=== PATIENT | male | born 1980 | race African-American/Black ===

== ENCOUNTER 2017-07-06 23:19 | Inpatient (IN) | payer BC, SELFPAY ==
--- NOTE | 2017-07-06 23:55 | RAD ---
RIGHT HAND THREE VIEWS: 07/06/17 HISTORY: Injury, right hand pain and swelling. FINDINGS/IMPRESSION: No acute fracture or dislocation is seen. There is a 15mm long radiopaque foreign body in the soft t issues of the ulnar aspect of the wrist with adjacent multiple tiny foreign bodies as well. POS: [facility]
[2017-07-07 00:12] LABS: #Basophils 0.1 thou/uL (0.0-0.2); #Eosinphils 0.2 thou/uL (0.0-0.7); #Lymphocytes 2.6 thou/uL (1.20-3.40); #Monocytes 1.4 thou/uL (0.11-0.59); #Neutrophils 7.1 thou/uL (1.40-6.50); %Basophils 0.9 % (0.0-1.0); %Eosinophils 1.4 % (0.0-10.0); %Lymphocytes 22.9 % (21.0-51.0); %Monocytes 12.6 % (0.0-10.0); Hematocrit 43.8 % (42.0-52.0); Mean Platelet Volume 7.7 fL (7.4-10.4); White Blood Cell (WBC) Count 11.3 thou/uL (4.8-10.8)
[2017-07-07 00:30] LABS: ALT (SGPT) 17 U/L (8-55); AST (SGOT) 24 U/L (5-34); Alkaline Phosphatase 63 U/L (40-150); Anion Gap 11 mmol/L (10-20); BUN (Urea Nitrogen) 9 mg/dL (8.9-20.6); Bilirubin, Total 0.3 mg/dL (0.2-1.2); Calc. Creatinine Clearance 0 mL/min (70-130); Carbon Dioxide 26 mmol/L (22-29); Chloride 105 mmol/L (98-107); Estimated GFR-MDRD Greater than 90; Globulin 3.1 g/dL (2.4-3.5); Protein, Total 6.6 g/dL (6.0-8.3)
[2017-07-07] MEDS ORDERED: Adacel (T-DAP) 0.5 ML VIAL ONE (01:52)
[2017-07-07] MEDS ORDERED: Zolpidem Tartrate 5 MG TAB PO PRN (02:52)
[2017-07-07] MEDS ORDERED: Ketorolac Tromethamine 30 MG/ML VIAL IVP PRN (02:52)
[2017-07-07] MEDS ORDERED: Senokot 8.6 MG TAB PO PRN (02:52)
[2017-07-07] MEDS ORDERED: Milk Of Magnesia 30 ML UDCUP PO PRN (02:52)
[2017-07-07] MEDS ORDERED: Ondansetron HCl/PF 4 MG/2 ML Vial IVP PRN ×2 (02:52→17:47)
[2017-07-07] MEDS ORDERED: Loperamide HCl 2 MG CAP PO PRN (02:52)
[2017-07-07] MEDS ORDERED: Ondansetron ODT 4 MG TAB PO PRN (02:52)
[2017-07-07] MEDS ORDERED: HYDROcodone/Acetaminophen 10/325 mg Tablet PO PRN (02:52)
[2017-07-07] MEDS ORDERED: Mag-Al 1200 mg/1200 mg/30 ML UDCUP PO PRN (02:52)
[2017-07-07] MEDS ORDERED: Acetaminophen 325 MG TAB PO PRN (02:52)
[2017-07-07] MEDS ORDERED: Ketorolac Tromethamine 30 MG/ML VIAL ONE ×3 (03:03→17:57)
[2017-07-07] MEDS ORDERED: Piperacillin/Tazobactam 3.375 GM VIAL ONE (03:04)
--- NOTE | 2017-07-07 03:42 | HP ---
PRIMARY CARE PHYSICIAN: [facility] call admission. REASON FOR ADMISSION: Right-hand swelling and cellulitis with the eze nail. HISTORY OF PRESENT ILLNESS: A 36-year-old Black -[place] male with no significant medical h istory, who came to the emergency room today with a complaint of right-hand swelling. The patient r eports that yesterday he was working and he hit the right hand on the eze nail. Subsequently, he has a rapid increase in swelling on his right hand and it was giving throbbing pain. He was not hav ing any fever at home. His pain is about 10/10 in intensity. His swelling was rapidly getting wors e and that is why he decided to come to the emergency room. In the emergency room, patient had a hand x-ray, which showed 15-mm long radiopaque foreign body in the soft tissue of the ulnar aspect of the wrist with adjacent multiple tiny foreign bodies as well. Patient also had a significant amount of pain and he was hypertensive. He was uncomfortable and t hat is why the patient is being admitted to medical floor. In the emergency room, patient has recei lou to tetanus toxoid injection. The patient has received IV fluid, vancomycin, and Zosyn. Patient also received Toradol for pain. REVIEW OF SYSTEMS: The following complete review of systems was negative, unless otherwise mentione d in the HPI or below: Constitutional: Weight loss or gain, ability to conduct usual activities. Skin: Rash, itching. Eyes: Double vision, pain. ENT/Mouth: Nose bleeding, neck stiffness, pain, tenderness. Cardiovascular: Palpitations, dyspnea on exertion, orthopnea. Respiratory: Shortnes s of breath, wheezing, cough, hemoptysis, fever or night sweats. Gastrointestinal: Poor appetite, abdominal pain, heartburn, nausea, vomiting, constipation, or diarrhea. Genitourinary: Urgency, fr equency, dysuria, nocturia. Musculoskeletal: Pain, swelling. Neurologic/Psychiatric: Anxiety, de pression. Allergy/Immunologic: Skin rash, bleeding tendency. Please see my HPI for pertinent posi tives and negatives. All other review of systems reviewed and negative except as mentioned in the H PI. EMERGENCY ROOM COURSE: The patient has received IV fluid, vancomycin, Zosyn, Toradol 30 mg, and tet anus toxoid. PAST MEDICAL HISTORY: Reviewed and negative. PAST SURGICAL HISTORY: Reviewed and negative. PAST PSYCHIATRIC HISTORY: Reviewed and negative. SOCIAL HISTORY: Patient drinks socially once a month. He abuses marijuana very occasionally. He s mokes about 1/2 pack per day. He lives at home. He is smoking since the age of 9. FAMILY HISTORY: No strong family history of premature coronary artery disease, stroke, or cancer. ALLERGIES: No known drug allergies. CURRENT HOME MEDICATIONS: The patient is not taking any prescribed or non-prescribed medication. PHYSICAL EXAMINATION: VITAL SIGNS: On arrival, blood pressure 146/86, pulse 58, respiratory rate 18, temperature 98.9, sa turation 100% on room air, weight 90.7 kilograms. GENERAL: Patient is currently alert, awake, mild distress due to pain in his right hand. HEENT: Normocephalic, atraumatic. Eyes: Pupils round, reactive to light. Extraocular muscle inta ct. ENT: Oropharynx within normal limits. Moist mucous membranes. No oral lesions. No pharyngeal emily thema, no exudate. NECK: Supple. Range of motion is normal. No meningeal signs of irritation. LUNGS: Clear to auscultation without any rhonchi or rales. CARDIAC: S1, S2 regular without any murmur. ABDOMEN: Soft, bowel sounds present, nontender, nondistended. No organomegaly, no mass, no suprapu bic tenderness. BACK: Unremarkable, no CVA tenderness. EXTREMITIES: Upper extremity passive movement of all joints are normal. Lower extremity: No edema . Good peripheral pulsation. Right-hand examination: Patient does have significant swelling, tend erness, warmth, and erythema over right hand with entry site of eze nail or on the medial aspect o f the wrist. NEUROLOGIC: Nonfocal examination. The patient moves all 4 limbs. Plantar bilateral flexor. PSYCHIATRIC: Normal affect. SIGNIFICANT LABS: 1. CBC: WBC 11.3, hemoglobin 14.2, platelet 213. BMP: Sodium 138, potassium 3.8, chloride 105, c arbon dioxide 26, BUN 9, creatinine 1.07, glucose 138, calcium 9.0. 2. LFT: AST 24, ALT 17, alkaline phosphatase 63, albumin 3.5. CRP 1.23. X-ray hand showing 15-mm long radiopaque foreign body in the soft tissue of the ulnar aspect of the wrist with adjacent multiple tiny foreign bodies as well. ASSESSMENT AND PLAN/IMPRESSION: 1. Right-hand cellulitis swelling injury with a eze nail. This patient has rapidly increasing sw elling in his right hand and he has significantly uncontrolled pain. Patient will require admission . We will consult hand surgeon tomorrow morning. Patient has received Adacel vaccination in the em ergency room. We will continue with vancomycin and Zosyn as empiric coverage. We will control his pain with Toradol and morphine, and for breakthrough pain, we will give him [place]. 2. Elevated hypertension without previous history of hypertension. His blood pressure is high, mos t likely related with his uncontrolled pain. We will, at this point, not start any antihypertensive medication and we will watch him in the hospital. 3. Tobacco abuse disorder. Smoking cessation counseling given. Healthy lifestyle measures discuss ed with the patient. 4. Deep venous thrombosis prophylaxis not needed because the patient is ambulatory and very low-ris k for deep venous thrombosis, gastrointestinal prophylaxis, Pepcid 20 mg p.o. b.i.d. 5. Code status: The patient is FULL CODE. Patient does not have any surrogate decision maker. Disposition plan based on clinical course. This patient may need to require a surgical procedure an d we are expecting patient's stay in the hospital more than 2 midnights. Plan of care discussed wit h the patient in detail.
[2017-07-07 04:22] LABS: #Eosinphils 0.1 thou/uL (0.0-0.7); #Monocytes 1.3 thou/uL (0.11-0.59); #Neutrophils 7.5 thou/uL (1.40-6.50); %Basophils 0.3 % (0.0-1.0); %Eosinophils 1.3 % (0.0-10.0); %Lymphocytes 17.8 % (21.0-51.0); %Monocytes 12.2 % (0.0-10.0); Hematocrit 39.7 % (42.0-52.0); Mean Platelet Volume 7.6 fL (7.4-10.4); Red Blood Cell (RBC) Count 4.24 mill/uL (4.70-6.10)
[2017-07-07 04:26] VITALS: BMI 25.1
[2017-07-07 04:44] LABS: Anion Gap 8 mmol/L (10-20); BUN (Urea Nitrogen) 8 mg/dL (8.9-20.6); Calc. Creatinine Clearance 154 mL/min (70-130); Calcium 8.3 mg/dL (7.8-10.44); Carbon Dioxide 25 mmol/L (22-29); Chloride 108 mmol/L (98-107); Estimated GFR-MDRD Greater than 90
[2017-07-07] MEDS ORDERED: FLU VACC QS2017-18 36 mo. & older 0.5 ML SYRINGE IM ONE (09:00)
--- NOTE | 2017-07-07 09:28 | PDOC.EVN ---
Event Note - Event Note Event Note: pt seen and examined. Admitted earlier today for injury to hand with retained FB in the form of eze nail. chart,labs etc reviewed. feels better. pain 7/10 in intensity. swelling about the same left hand. VSS. CTA B/L.RRR hand swelling w nail point palpable left lateral edge. Difficult to move fingers. labs /meds reviewed. Plan-cont IV ABX. Hand surgeon has evaluated pt this am with plans for OR later today. cont current care. Will need at least 4-5 days of IV Abx. Follow Cx results from surgical sample. hemodynamically stable
[2017-07-07] MEDS ORDERED: Potassium Chloride 20 MEQ TAB PO SCH (09:30)
[2017-07-07] MEDS: Piperacillin/Tazobactam 4.5 GM in Sodium Chloride 0.9% 100 ML IVPB SCH ×3 (09:42→20:17)
[2017-07-07] MEDS ORDERED: Vancomycin HCl 1 GM in Premix Bag 1 BAG IVPB SCH (10:15)
[2017-07-07] MEDS: Famotidine 20 MG TAB PO SCH ×2 (12:40→20:17)
[2017-07-07] MEDS: Saccharomyces boulardii 250 MG CAP PO SCH (12:41)
[2017-07-07] MEDS: Vancomycin HCl 1 GM in Premix Bag 1 BAG IVPB SCH ×2 (12:41→20:50)
[2017-07-07] MEDS ORDERED: Bupivacaine PF 0.5% 30 ML VIAL ONE (15:55)
[2017-07-07] MEDS ORDERED: Bacitracin Zinc Ointment 30 gm TUBE ONE (15:55)
[2017-07-07] MEDS ORDERED: Thrombin 5000 UNITS/5 ML VIAL ONE (15:55)
[2017-07-07] MEDS ORDERED: Sodium Chloride 0.9% 10 ML ONE ×2 (15:55→17:02)
[2017-07-07] MEDS ORDERED: Lidocaine 1% (PF) 30 ML VIAL ONE (15:55)
[2017-07-07] MEDS ORDERED: Propofol 200 MG/20 ML VIAL ONE (16:20)
[2017-07-07] MEDS ORDERED: PHENYLEPHRINE-NS 100 MCG/ML 10 ML SYRINGE ONE (16:20)
[2017-07-07] MEDS ORDERED: Ondansetron HCl/PF 4 MG/2 ML Vial ONE (16:20)
[2017-07-07] MEDS ORDERED: Lidocaine 2% PF 10 ML AMP (For Epidural Use) ONE (16:20)
[2017-07-07] MEDS ORDERED: Dexamethasone 20 MG/5 ML VIAL ONE (16:20)
[2017-07-07] MEDS ORDERED: HYDROmorphone 2 MG/ML VIAL SLOW IVP PRN (17:47)
[2017-07-07] MEDS ORDERED: Promethazine HCl 25 MG/ML VIAL IM PRN ×2 (17:47→18:18)
[2017-07-07] MEDS ORDERED: Promethazine HCl 25 MG/ML VIAL SLOW IVP PRN (17:47)
[2017-07-07] MEDS ORDERED: Meperidine HCl/PF 25 MG/ML VIAL IM PRN (18:18)
[2017-07-07] MEDS ORDERED: HYDROcodone/Acetaminophen 7.5/325 mg Tablet PO PRN (18:19)
[2017-07-07] MEDS ORDERED: Ondansetron HCl/PF 4 MG/2 ML Vial SLOW IVP PRN (18:20)
[2017-07-07] MEDS: Albuterol Sulfate 2.5 mg/3 ml Neb NEB SCH ×2 (18:40→23:50)
[2017-07-07] MEDS: HYDROcodone/Acetaminophen 7.5/325 mg Tablet PO PRN (20:16)
[2017-07-07] MEDS: Ketorolac Tromethamine 30 MG/ML VIAL IVP SCH (23:39)
[2017-07-08] MEDS: Vancomycin HCl 1 GM in Premix Bag 1 BAG IVPB SCH ×3 (01:05→18:30)
[2017-07-08] MEDS: Piperacillin/Tazobactam 4.5 GM in Sodium Chloride 0.9% 100 ML IVPB SCH ×4 (03:39→21:01)
[2017-07-08] MEDS: Ketorolac Tromethamine 30 MG/ML VIAL IVP SCH ×3 (05:19→18:04)
[2017-07-08 05:49] LABS: #Lymphocytes 0.9 thou/uL (1.20-3.40); #Monocytes 0.3 thou/uL (0.11-0.59); #Neutrophils 10.5 thou/uL (1.40-6.50); %Eosinophils 0.1 % (0.0-10.0); %Lymphocytes 7.4 % (21.0-51.0); %Monocytes 2.4 % (0.0-10.0); Hematocrit 42.2 % (42.0-52.0); Mean Platelet Volume 7.6 fL (7.4-10.4); White Blood Cell (WBC) Count 11.6 thou/uL (4.8-10.8)
[2017-07-08 06:03] LABS: Anion Gap 11 mmol/L (10-20); BUN (Urea Nitrogen) 8 mg/dL (8.9-20.6); Calc. Creatinine Clearance 123 mL/min (70-130); Carbon Dioxide 24 mmol/L (22-29); Chloride 105 mmol/L (98-107); Estimated GFR-MDRD Greater than 90
--- NOTE | 2017-07-08 06:21 | OP ---
DATE OF SURGERY: 07/07/2017 PREOPERATIVE DIAGNOSES: 1. Right wrist foreign body, wood-like, entering the triquetrohamate articulation. 2. Gross contamination along the path from the skin to the joint. POSTOPERATIVE DIAGNOSES AND FINDINGS: 1. Wood foreign body, 2.5 cm long, with tract of contamination from the skin to triquetrohamate kelsi nt. 2. A 50% laceration, longitudinal, transverse of the extensor carpi ulnaris tendon and complete she ath laceration. 3. Contamination along the entire tract including the intra-articular joint and synovium. PROCEDURES PERFORMED: 1. Right wrist arthrotomy with foreign body removal and synovectomy, triquetrohamate articulation. 2. Removal of foreign body, wood-like, black tar appearing cylindrical body, 2.5 cm long x 3 mm in thickness. 3. Debridement of extensor carpi ulnaris tendon sheath/tenosynovectomy. 4. Debridement of the entire tract from subcutaneous down to and including the bone, [place] [address] debridement and [place] [address], debridement of open joint and /or fracture. COMPLICATIONS: None. TOURNIQUET TIME: 25 minutes. ESTIMATED BLOOD LOSS: 50 mL. 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 Thus, operative intervention on an u rgent basis was indicated. DESCRIPTION OF PROCEDURE: After successful general endotracheal anesthesia, the limb was prepped an d draped. A time out was done appropriately. The C-arm was brought to the field, identified the en tire path, outlined incision over this and we then made a zigzag incision along the path of the fore ign body. Immediately, there was gross mucopurulence camefrom subcutaneous and deep. We then exten ded the incision to make it a total of 4 cm incision so that we could then now remove the foreign adelaide dy which we did by following which tract where it came from the triquetrohamate joint. We began steven riding first superficially following the tract removing multiple foreign body particles, but visuali zed meticulously the superficial ulnar nerve branches. It was then, after debriding the subcutaneou s tissue of all foreign material and the fascia, then once we were deep to fascia, we could see the extensor carpi ulnaris sheath was contaminated and underneath this was a 50% with laceration of exte nsor carpi ulnaris caused by the foreign body upon entrance. We then debrided the sheath, performed tenosynovectomy, debrided the tendon and now went deep to the tendon where we saw that the tract of the foreign body contamination extended into the joint. We did a synovectomy with a Pala blade, used a small hemostat as a hand and wrist type rongeur and debrided the tissue of all visible foreig n body material and then included not only the debridement with the hemostat, but we used a Pala b lade, tenotomy scissors, and curette once we entered the joint. We also used excisional technique. At this time, however, the depth was included the joint surface as we debrided material associated with open joint. After performing the above excisional technique debridement with the above-listed instruments and th e above-listed depth and technique, we irrigated the joint with 3 liters of normal saline and Pulsav ac pressure. The wound was also included. We then took a syringe with an 18-gauge needle and pulle d 50 mL of irrigation of the joint itself without the deeper tissues being included. We deflated th e tourniquet after we saw no particles visible that were contamination particles using magnification loupes. Hemostasis was obtained. Radiographs were done that showed the foreign body removed and particles not being seen on the C-arm . We placed a pack of normal saline-soaked gauze into the wound down to the level of the joint, covere d this with a bulky dressing and then a splint because of the joint and tendon injury with plans to return for a second debridement and closure in 7 to 10 days. We will consult Infectious Disease bec ause of the fact that it was an intraarticular infection, true abscess, and foreign body. The patie nt left the operating room without complication.
[2017-07-08] MEDS: Albuterol Sulfate 2.5 mg/3 ml Neb NEB SCH ×2 (08:31→14:13)
[2017-07-08] MEDS: Famotidine 20 MG TAB PO SCH ×2 (08:45→21:00)
[2017-07-08] MEDS: Saccharomyces boulardii 250 MG CAP PO SCH (08:45)
--- NOTE | 2017-07-08 11:42 | PDOC.PN ---
- Subjective Encounter Start Date: 07/08/17 Encounter Start Time: 11:40 Pt seen and examined, chart reviewed in its entrety. This is my first visit with this patient To OR last evening for I&D, foreign bosy removed, cultures sent. All cultres neg so far, but still very early. tolerating vanc and zosyn without rash or itching. deneis f/C, no n/V/D/C, no CP or SOB, hand feels swollen and tight. 10 point ROS performed and neg for all systems except as above - Objective Resuscitation Status: FULL MAR Reviewed: Yes Vital Signs & Weight: Vital Signs (12 hours) Temp Pulse Resp BP Pulse Ox 07/08/17 08:31 74 12 07/08/17 08:00 98.4 F 74 18 165/87 H 99 07/08/17 03:55 97.7 F 54 L 18 147/83 H 96 07/07/17 23:52 98.7 F 65 18 176/98 H 98 07/07/17 23:50 71 16 97 Weight Weight 195 lb 11.2 oz I&O: 07/07/17 07/08/17 07/09/17 06:59 06:59 06:59 Intake Total 1380 Balance 1380 Result Diagrams: 07/08/17 05:19 07/08/17 05:19 Radiology Reviewed by me: Yes EKG Reviewed by me: Yes Phys Exam - Physical Examination Constitutional: NAD HEENT: PERRLA, moist MMs, sclera anicteric, oral pharynx no lesions Neck: no nodes, no JVD, supple, full ROM Respiratory: no wheezing, no rales, no rhonchi, clear to auscultation bilateral Cardiovascular: RRR, no significant murmur, no rub Gastrointestinal: soft, non-tender, no distention, positive bowel sounds Musculoskeletal: pulses present, edema present right hand, none to left hand or BLE Neurological: non-focal, normal sensation, moves all 4 limbs Lymphatic: no nodes Psychiatric: normal affect, A&O x 3 Skin: no rash, normal turgor, cap refill <2 seconds Deviation from normal: right hand in OR dressing, not removed Dx/Plan (1) Traumatic arthropathy, right hand Code(s): M12.541 - TRAUMATIC ARTHROPATHY, RIGHT HAND Status: Acute Comment: S/P I&D. On Vanc adn zosyn, cultures neg at 12 hours. CCM (2) Cellulitis of hand, right Code(s): L03.113 - CELLULITIS OF RIGHT UPPER LIMB Status: Acute Comment: see above (3) Foreign body (FB) in soft tissue Code(s): M79.5 - RESIDUAL FOREIGN BODY IN SOFT TISSUE Status: Resolved Comment: removed, path pending (4) HTN (hypertension) Code(s): I10 - ESSENTIAL (PRIMARY) HYPERTENSION Status: Acute Qualifiers: Hypertension type: essential hypertension Qualified Code(s): I10 - Essential (primary) hypertension (5) Tobacco abuse Code(s): Z72.0 - TOBACCO USE Status: Chronic - Plan cont current plan of care, continue antibiotics, PT/OT * .
[2017-07-08 16:18] LABS: Vancomycin, Trough 12.3 ug/mL
[2017-07-08] MEDS: Vancomycin HCl 1.25 GM in Sodium Chloride 0.9% 250 ML 250 ML IVPB SCH (18:02)
[2017-07-09] MEDS: Ketorolac Tromethamine 30 MG/ML VIAL IVP SCH ×4 (00:08→17:57)
[2017-07-09] MEDS: Vancomycin HCl 1.25 GM in Sodium Chloride 0.9% 250 ML 250 ML IVPB SCH ×3 (01:58→17:57)
[2017-07-09] MEDS: Piperacillin/Tazobactam 4.5 GM in Sodium Chloride 0.9% 100 ML IVPB SCH ×4 (03:45→22:29)
[2017-07-09 05:46] LABS: #Eosinphils 0.1 thou/uL (0.0-0.7); #Lymphocytes 2.3 thou/uL (1.20-3.40); #Monocytes 1.3 thou/uL (0.11-0.59); #Neutrophils 8.5 thou/uL (1.40-6.50); %Basophils 0.2 % (0.0-1.0); %Eosinophils 0.8 % (0.0-10.0); %Lymphocytes 19.1 % (21.0-51.0); %Monocytes 10.3 % (0.0-10.0); Hematocrit 36.3 % (42.0-52.0); Mean Platelet Volume 7.8 fL (7.4-10.4); Red Blood Cell (RBC) Count 3.87 mill/uL (4.70-6.10); White Blood Cell (WBC) Count 12.2 thou/uL (4.8-10.8)
[2017-07-09 06:14] LABS: Anion Gap 8 mmol/L (10-20); BUN (Urea Nitrogen) 14 mg/dL (8.9-20.6); Calc. Creatinine Clearance 129 mL/min (70-130); Calcium 8.2 mg/dL (7.8-10.44); Carbon Dioxide 27 mmol/L (22-29); Chloride 109 mmol/L (98-107); Estimated GFR-MDRD Greater than 90
[2017-07-09] MEDS: Saccharomyces boulardii 250 MG CAP PO SCH (08:54)
[2017-07-09] MEDS: Famotidine 20 MG TAB PO SCH ×2 (08:54→23:09)
--- NOTE | 2017-07-09 10:25 | PDOC.PN ---
- Subjective Encounter Start Date: 07/09/17 Encounter Start Time: 07:45 PT seen and examined on rounds. No acute events overnight. Swelling and tightness improved. Moving fingers better. No F/C, no N/V/D/c, po intake good. toelrating IV Vanc and Zosyn without itching or rash. Review of surgical note mentions wrist joint involvement, need to verify with Hand surgery. Cultures pending, but thio broth cloudy in micro and subbed out. No other complaints or needs 10 point ROS performed and neg for all except as above - Objective Resuscitation Status: Full MAR Reviewed: Yes Vital Signs & Weight: Vital Signs (12 hours) Temp Pulse Resp BP Pulse Ox 07/09/17 08:20 98.4 F 76 20 100 07/09/17 08:00 98.4 F 76 20 156/88 H 100 07/09/17 03:33 98.5 F 65 16 142/84 H 98 07/09/17 00:12 98.8 F 77 18 128/71 92 L Weight Weight 195 lb 11.2 oz I&O: 07/08/17 07/09/17 07/10/17 06:59 06:59 06:59 Intake Total 1380 3145 Balance 1380 3145 Result Diagrams: 07/09/17 04:44 07/09/17 04:44 Radiology Reviewed by me: Yes EKG Reviewed by me: No Phys Exam - Physical Examination Constitutional: NAD HEENT: PERRLA, moist MMs, sclera anicteric, oral pharynx no lesions Neck: no nodes, no JVD, supple, full ROM Respiratory: no wheezing, no rales, no rhonchi, clear to auscultation bilateral Cardiovascular: RRR, no significant murmur, no rub Gastrointestinal: soft, non-tender, no distention, positive bowel sounds Musculoskeletal: no edema, pulses present Neurological: non-focal, normal sensation, moves all 4 limbs Lymphatic: no nodes Psychiatric: normal affect, A&O x 3 Skin: no rash, normal turgor, cap refill <2 seconds Deviation from normal: Hand dressign (right hand) intact and not removed. Cap refill good Dx/Plan (1) Traumatic arthropathy, right hand Code(s): M12.541 - TRAUMATIC ARTHROPATHY, RIGHT HAND Status: Acute Comment: S/P I&D. On Vanc and zosyn, cultures may be positive. CCM. If joint involved , will need intermediate project manager IV antibiotics for septivc arthritis. Pt unfunded, will discuss with case management (2) Cellulitis of hand, right Code(s): L03.113 - CELLULITIS OF RIGHT UPPER LIMB Status: Acute Comment: see above (3) Foreign body (FB) in soft tissue Code(s): M79.5 - RESIDUAL FOREIGN BODY IN SOFT TISSUE Status: Resolved Comment: removed, path pending (4) HTN (hypertension) Code(s): I10 - ESSENTIAL (PRIMARY) HYPERTENSION Status: Acute Qualifiers: Hypertension type: essential hypertension Qualified Code(s): I10 - Essential (primary) hypertension Comment: better, not on treatment. watch (5) Tobacco abuse Code(s): Z72.0 - TOBACCO USE Status: Chronic - Plan cont current plan of care, continue antibiotics, PT/OT, nursing home social worker * .
[2017-07-09 17:06] LABS: #Basophils 0.1 thou/uL (0.0-0.2); #Eosinphils 0.3 thou/uL (0.0-0.7); #Lymphocytes 3.1 thou/uL (1.20-3.40); #Monocytes 1.1 thou/uL (0.11-0.59); %Basophils 0.6 % (0.0-1.0); %Eosinophils 2.2 % (0.0-10.0); %Lymphocytes 27.1 % (21.0-51.0); %Monocytes 9.7 % (0.0-10.0); Hematocrit 39.3 % (42.0-52.0); Mean Platelet Volume 7.2 fL (7.4-10.4); White Blood Cell (WBC) Count 11.6 thou/uL (4.8-10.8)
[2017-07-09 17:29] LABS: Vancomycin, Trough 16.2 ug/mL
[2017-07-09] MEDS ORDERED: Bupivacaine PF 0.5% 30 ML VIAL ONE (19:16)
[2017-07-09] MEDS ORDERED: Bacitracin Zinc Ointment 30 gm TUBE ONE (19:16)
[2017-07-09] MEDS ORDERED: Thrombin 5000 UNITS/5 ML VIAL ONE (19:16)
[2017-07-09] MEDS ORDERED: Sodium Chloride 0.9% 30 ML ONE (19:17)
[2017-07-09] MEDS ORDERED: Midazolam HCl 2 mg/2 ml Vial ONE (20:03)
[2017-07-09] MEDS ORDERED: Fentanyl 100 MCG/2 ML VIAL ONE ×2 (20:03→21:48)
[2017-07-09] MEDS ORDERED: Lidocaine 1% PF 5 ML VIAL ONE (20:43)
[2017-07-09] MEDS ORDERED: Ondansetron HCl/PF 4 MG/2 ML Vial ONE (20:43)
[2017-07-09] MEDS ORDERED: Propofol 200 MG/20 ML VIAL ONE (20:43)
[2017-07-09] MEDS ORDERED: Ondansetron HCl/PF 4 MG/2 ML Vial IVP PRN (21:32)
[2017-07-09] MEDS ORDERED: Promethazine HCl 25 MG/ML VIAL IM PRN (21:32)
[2017-07-09] MEDS ORDERED: Promethazine HCl 25 MG/ML VIAL SLOW IVP PRN (21:32)
[2017-07-09] MEDS ORDERED: Ketorolac Tromethamine 30 MG/ML VIAL ONE (21:37)
[2017-07-09] MEDS ORDERED: Labetalol HCl 100 MG/20 ML VIAL ONE (22:07)
[2017-07-10] MEDS: Vancomycin HCl 1.25 GM in Sodium Chloride 0.9% 250 ML 250 ML IVPB SCH ×3 (02:32→17:40)
[2017-07-10] MEDS: Piperacillin/Tazobactam 4.5 GM in Sodium Chloride 0.9% 100 ML IVPB SCH ×3 (03:57→14:03)
[2017-07-10 05:23] LABS: #Eosinphils 0.2 thou/uL (0.0-0.7); #Lymphocytes 2.8 thou/uL (1.20-3.40); #Monocytes 0.7 thou/uL (0.11-0.59); %Basophils 0.5 % (0.0-1.0); %Lymphocytes 36.3 % (21.0-51.0); %Monocytes 9.2 % (0.0-10.0); Hematocrit 36.1 % (42.0-52.0); Mean Platelet Volume 7.1 fL (7.4-10.4); Red Blood Cell (RBC) Count 3.81 mill/uL (4.70-6.10); White Blood Cell (WBC) Count 7.8 thou/uL (4.8-10.8)
[2017-07-10] MEDS: Ketorolac Tromethamine 30 MG/ML VIAL IVP SCH ×2 (06:01→14:02)
--- NOTE | 2017-07-10 06:50 | OP ---
DATE OF SURGERY: 07/09/2017 PREOPERATIVE DIAGNOSIS: Open wound with possible contamination because of persistent leukocytosis/e levated white blood cell count. POSTOPERATIVE DIAGNOSES/FINDINGS: Six small specks of contamination similar to the multiple specks found with debridement 2 days ago. No evidence of underlying gross purulence or joint involvement a t this time. Exposed the ulnar wall of the jorge without evidence of gross osteomyelitis. PROCEDURES PERFORMED: 1. Debridement of the material associated with open fracture. 2. Debridement of the wound down to including subcutaneous fascia and tendon sheath. 3. Packing the wound after irrigation with normal saline soaked gauze. SURGEON: Bear Lopez M.D. SHRUB GROWER: Dr. Kain Ochoa. COMPLICATIONS: None. TOURNIQUET TIME: 40 minutes. INDICATIONS: The patient again had a debridement 48 hours ago but despite being afebrile, wound dres sing change, gross purulence, had evidence of leukocytosis; thus a second look with irrigation and d ebridement were indicated. DESCRIPTION OF PROCEDURE: After successful general endotracheal anesthesia, the limb was prepped an d draped and then exsanguinated the limb with the help of anesthesia and elementary assistant teacher, Kain horton. The patient had a fuse flex of the javier-black material that was seen on the wound removed 2 days ago , the joint to include the duct region and hamate were visualized and no gross purulence was s een and no particle suspects of contamination seen in these areas. We then used the curette to debr va the lateral wall again of the hamate where the charcoal-like medium was found 48 hours ago, lift ed up all hidden recesses and irrigated with Pulsavac pressure with a total of 3 liters. We then re leased the tourniquet, obtained hemostasis and placed wound on the bulky dressing. The patient left the operating room without complications.
[2017-07-10] MEDS: Famotidine 20 MG TAB PO SCH (08:59)
[2017-07-10] MEDS: Saccharomyces boulardii 250 MG CAP PO SCH (08:59)
[2017-07-10] MEDS: HYDROcodone/Acetaminophen 7.5/325 mg Tablet PO PRN (09:09)
--- NOTE | 2017-07-10 10:20 | PDOC.PN ---
- Subjective Encounter Start Date: 07/10/17 Encounter Start Time: 07:30 Pt seen and examined on rounds earlier. On review of the chart, pt went back to OR yesterday for repeat washout. Operative note reviewed. Cultrues today with GNR in deep cuiltures, CoNS in one likely a contaminant. Toleratinve abx well without itching or rash, currently on Vanc adn Zosyn. no F/C, no N/V/D/C, no CP or SOB, pain well controlled. 10 point ROS performed adn neg for all systems except as above - Objective Resuscitation Status: Full MAR Reviewed: Yes Vital Signs & Weight: Vital Signs (12 hours) Temp Pulse Resp BP Pulse Ox 07/10/17 07:00 98.0 F 51 L 12 157/86 H 100 07/10/17 04:03 98 07/10/17 03:46 97.9 F 66 18 152/79 H 100 07/10/17 00:00 98.0 F 61 18 141/81 H 96 07/09/17 22:30 98.2 F 63 16 96 Weight Weight 195 lb 11.2 oz I&O: 07/09/17 07/10/17 07/11/17 06:59 06:59 06:59 Intake Total 3145 1810 Balance 3145 1810 Result Diagrams: 07/10/17 05:13 07/09/17 04:44 Radiology Reviewed by me: Yes EKG Reviewed by me: Yes Phys Exam - Physical Examination Constitutional: NAD HEENT: PERRLA, moist MMs, sclera anicteric, oral pharynx no lesions Neck: no nodes, no JVD, supple, full ROM Respiratory: no wheezing, no rales, no rhonchi, clear to auscultation bilateral Cardiovascular: RRR, no significant murmur, no rub Gastrointestinal: soft, non-tender, no distention, positive bowel sounds Musculoskeletal: no edema, pulses present Neurological: non-focal, normal sensation, moves all 4 limbs Lymphatic: no nodes Psychiatric: normal affect, A&O x 3 Skin: no rash, normal turgor, cap refill <2 seconds Deviation from normal: right hand dressing C/D/I Dx/Plan (1) Traumatic arthropathy, right hand Code(s): M12.541 - TRAUMATIC ARTHROPATHY, RIGHT HAND Status: Acute Comment: S/P I&D. On Vanc and zosyn, cultures positive, pending ID and susceptibiltiies of GNR.. CCM. If joint involved, will need assisted IV antibiotics for septivc arthritis. Pt unfunded, will discuss with case management (2) Cellulitis of hand, right Code(s): L03.113 - CELLULITIS OF RIGHT UPPER LIMB Status: Acute Comment: see above (3) Foreign body (FB) in soft tissue Code(s): M79.5 - RESIDUAL FOREIGN BODY IN SOFT TISSUE Status: Resolved Comment: removed, path pending. repeat clean out 07/09 (4) HTN (hypertension) Code(s): I10 - ESSENTIAL (PRIMARY) HYPERTENSION Status: Acute Qualifiers: Hypertension type: essential hypertension Qualified Code(s): I10 - Essential (primary) hypertension Comment: better, not on treatment. watch (5) Tobacco abuse Code(s): Z72.0 - TOBACCO USE Status: Chronic - Plan cont current plan of care, continue antibiotics, PT/OT * .
[2017-07-10 21:25] VITALS: TEMP 98.2
[2017-07-10 21:28] VITALS: BP 170/82
== END 2017-07-10 20:56 | disposition home or self-care (01) | DRG 501 ==
LOC: ERS 23:19 → SURG A 07-07 03:57
PROVIDERS: ADMIT Internal Medicine; ATTEND Internal Medicine
PROC: 0RBN0ZZ Excision of Right Wrist Joint, Open Approach (ICD-10-PCS; principal; 2017-07-07)
PROC: 0LB50ZZ Excision of Right Lower Arm and Wrist Tendon, Open Approach (ICD-10-PCS; 2017-07-07)
PROC: 0RCN0ZZ Extirpation of Matter from Right Wrist Joint, Open Approach (ICD-10-PCS; 2017-07-07)
PROC: 0LD50ZZ Extraction of Right Lower Arm and Wrist Tendon, Open Approach (ICD-10-PCS; 2017-07-09)
DX: M12.541 Traumatic arthropathy, right hand (principal); L03.113 Cellulitis of right upper limb; S66.821A Laceration of other specified muscles, fascia and tendons at wrist and hand level, right hand, initial encounter; F17.210 Nicotine dependence, cigarettes, uncomplicated; S61.401A Unspecified open wound of right hand, initial encounter; W45.0XXA Nail entering through skin, initial encounter; S61.521A Laceration with foreign body of right wrist, initial encounter
CPT/HCPCS: 36415; 80048; 80053; 80202; 85025; 85652; 86140; 87070; 87077; 87186; 87205; 90471; 90715; 94640; 96365; 96375; A4216; J0360; J1100; J1170; J1885; J2001; J2250; J2270; J2405; J2543; J2704; J3010; J3370; J3490; J7050; J7611; S0020

== ENCOUNTER 2017-07-14 07:58 | Emergency (ER) | payer SELFPAY ==
[2017-07-14] MEDS ORDERED: HYDROcodone/Acetaminophen 10/325 mg Tablet ONE (08:24)
== END 2017-07-14 11:11 | disposition home or self-care (01) ==
LOC: ERS 07:58
DX: Z48.817 Encounter for surgical aftercare following surgery on the skin and subcutaneous tissue (principal); F17.210 Nicotine dependence, cigarettes, uncomplicated
CPT/HCPCS: 99283

== ENCOUNTER 2017-08-09 14:31 | Emergency (ER) | payer SELFPAY ==
[2017-08-09 15:32] LABS: #Basophils 0.1 thou/uL (0.0-0.2); #Eosinphils 0.1 thou/uL (0.0-0.7); #Lymphocytes 2.2 thou/uL (1.20-3.40); #Monocytes 0.7 thou/uL (0.11-0.59); #Neutrophils 4.2 thou/uL (1.40-6.50); %Basophils 0.9 % (0.0-1.0); %Eosinophils 1.2 % (0.0-10.0); %Lymphocytes 30.2 % (21.0-51.0); %Monocytes 9.4 % (0.0-10.0); Mean Platelet Volume 7.6 fL (7.4-10.4); Red Blood Cell (RBC) Count 4.61 mill/uL (4.70-6.10); White Blood Cell (WBC) Count 7.2 thou/uL (4.8-10.8)
[2017-08-09 15:45] LABS: Lactic Acid - Sepsis 0.9 mmol/L (0.5-2.2)
[2017-08-09 15:49] LABS: ALT (SGPT) 13 U/L (8-55); AST (SGOT) 16 U/L (5-34); Alkaline Phosphatase 75 U/L (40-150); Anion Gap 13 mmol/L (10-20); BUN (Urea Nitrogen) 8 mg/dL (8.9-20.6); Bilirubin, Total 0.3 mg/dL (0.2-1.2); Calc. Creatinine Clearance 0 mL/min (70-130); Calcium 9.3 mg/dL (7.8-10.44); Carbon Dioxide 24 mmol/L (22-29); Chloride 106 mmol/L (98-107); Estimated GFR-MDRD Greater than 90; Globulin 3.3 g/dL (2.4-3.5); Protein, Total 7.1 g/dL (6.0-8.3)
--- NOTE | 2017-08-09 15:50 | RAD ---
THREE VIEWS RIGHT WRIST: DATE: 08/09/17. HISTORY: Right wrist pain. Right wrist wound. History of recent surgery. FINDINGS: There is deformity of the distal right radial metaphysis likely related to remote healed fracture an d deformity. No acute fracture or dislocation is seen. No other osseous abnormality. IMPRESSION: No acute osseous abnormality of the right wrist. POS: [facility]
[2017-08-09] MEDS ORDERED: Bacitracin Zinc 1 Packet ONE (16:05)
[2017-08-09] MEDS ORDERED: cefTRIAXone\\ROCEPHIN 2 GM in Sodium Chloride 0.9% 100 ML IVPB SCH (16:45)
== END 2017-08-09 17:28 | disposition home or self-care (01) ==
LOC: ERS 14:31
DX: T81.89XA Other complications of procedures, not elsewhere classified, initial encounter (principal); F17.210 Nicotine dependence, cigarettes, uncomplicated
CPT/HCPCS: 36415; 80053; 83605; 85025; 87040; 87070; 87077; 87205; 96365; J0696; J7050